=== PATIENT | female | born 1990 | race Caucasian/White ===

== ENCOUNTER 2016-10-22 23:41 | Emergency (ER) | payer BC ==
[~2016-10-22] VITALS: Ht 162.6 cm; Wt 54.0 kg
[2016-10-23] MEDS ORDERED: NO MEDICATIONS (00:01)
[2016-10-23 01:40] LABS: URINE SOURCE CLEAN CATCH
[2016-10-23 01:43] LABS: URINE APPEARANCE SL CLOUDY; URINE BILIRUBIN NEG (NEG); URINE BLOOD 2+ (NEG); URINE COLOR DK YELLOW; URINE GLUCOSE NEG (NORM); URINE KETONE NEG (NEG); URINE LEUKOCYTE ESTERASE 1+ (NEG); URINE NITRATE NEG (NEG); URINE PROTEIN 1+ (NEG); URINE SPECIFIC GRAVITY >=1.030 (1.003-1.035)
[2016-10-23 01:44] LABS: BASOPHIL% 0.3 % (0-2.5); EOSINOPHIL# 0.4 X10e3 (0-0.7); EOSINOPHIL% 5.8 % (0.0-7.0); HEMATOCRIT 39.2 % (35.0-45.0); HEMOGLOBIN 13.2 gm/dL (12.0-16.0); LYMPHOCYTE# 1.9 X10e3 (1.0-3.5); LYMPHOCYTE% 28.9 % (17.0-45.0); MEAN CELL VOLUME 86.5 FL (83-96); MEAN CORPUSCULAR HEMOGLOBIN 29.1 PG (28-34); MEAN CORPUSCULAR HGB CONC 33.6 g/dL (30-36); MEAN PLATELET VOLUME 9.3 FL (6.5-11.5); MONOCYTE# 0.5 X10e3 (0-1.0); MONOCYTE% 7.9 % (3.0-12.0); NEUTROPHIL# 3.7 X10e3 (1.5-7.1); NEUTROPHIL% 57.1 % (40-75); PLATELET COUNT 281 X10e3 (140-420); RED BLOOD COUNT 4.53 X10e (3.90-5.30); RED CELL DISTRIBUTION WIDTH 14.6 % (11.0-15.5); WHITE BLOOD COUNT 6.5 X10e3 (4.0-10.5)
[2016-10-23 01:46] LABS: MICRO INDICATED? YES
[2016-10-23 01:47] LABS: DIFF IND NO
[2016-10-23 01:50] LABS: CULTURE INDICATED? YES; URINE AMORPHOUS SEDIMENT AMORP URATES; URINE BACTERIA 2+ (NEG); URINE MUCUS PRESENT; URINE RBC 25-50 /[HPF] (0-2); URINE SQUAMOUS EPITHELIAL CELL MANY /[HPF]; URINE WBC 50-100 /[HPF] (0-5)
[2016-10-23 01:54] LABS: ALBUMIN SERUM 4.4 g/dL (3.5-5.0); ALKALINE PHOSPHATASE 46 U/L (32-92); ALT (SGPT) 29 U/L (10-40); AMYLASE 31 U/L (0-46); AST (SGOT) 25 U/L (10-42); BILIRUBIN, DIRECT <0.1 mg/dL (0.0-0.2); BILIRUBIN,INDIRECT 0.6 mg/dL (0.0-0.9); BILIRUBIN,TOTAL 0.7 mg/dL (0.2-2.0); BLOOD UREA NITROGEN 26 mg/dL (9-23); CALCIUM SERUM 9.5 mg/dL (8.4-10.2); CARBON DIOXIDE 27 mmol/L (22-31); CHLORIDE 104 mmol/L (100-111); CREATININE SERUM 0.8 mg/dL (0.6-1.4); GLOM FILT RATE Estimated 102.6 mL/min (>60); GLUCOSE FASTING 97 mg/dL (70-110); LIPASE 37 U/L (22-51); POTASSIUM 3.7 mmol/L (3.5-5.1); PROTEIN TOTAL SERUM 7.4 g/dL (6.0-8.3); SODIUM 140 mmol/L (135-145)
[2016-11-02] MEDS ORDERED: PROZAC PO (11:07)
[2016-11-02] MEDS ORDERED: ZOFRAN PO (12:28)
== END 2016-10-23 02:30 | disposition home or self-care (01) ==
LOC: SED 23:41
PROVIDERS: Nurse Practitioner Family
DX: N39.0 Urinary tract infection, site not specified (principal); F17.210 Nicotine dependence, cigarettes, uncomplicated
CPT/HCPCS: 36415; 80048; 80076; 81003; 82150; 83690; 84703; 85025; 87086; 96361; 96374; 99284; J2405

== ENCOUNTER → 2016-11-02 | Day surgery (SDC) | payer BC ==
[~2016-11-02] MED LIST: NO MEDICATIONS; PROZAC PO; ZOFRAN PO
--- NOTE | ~2016-11-02 | OR ---
Unit #: [id number] #: [id number] Patient: ZEYAD SALGADO [id number] [address] [address] [id number] O MR#: [id number] NAME: ZEYAD SALGADO ROOM: Date of Procedure: 11/02/2016 Admission Date: 11/02/2016 Surgeon: Wesly Ruiz M.D. : 1990 Attending Physician: Wesly Ruiz M.D. Primary Care Physician: John Calderon M.D. OPERATIVE REPORT PRIMARY CARE PHYSICIAN John Calderon M.D. PREOPERATIVE DIAGNOSES Nausea and vomiting, which is intermittent and dyspepsia. PROCEDURES PERFORMED Upper gastrointestinal endoscopy and biopsy. POSTOPERATIVE DIAGNOSES Completely normal examination up to third part of duodenum. A biopsy obtained from the antrum for CLOtest. RECOMMENDATIONS An outpatient gastric emptying study is being scheduled. The patient will be seen in the office in 3 to 4 weeks time thereafter. SEDATION USED MAC. DESCRIPTION OF PROCEDURE Following detailed explanations of potential risks and complications of an upper endoscopy, namely perforation, bleeding, and complications related to sedation, the patient was brought to GI lab and laid in the left lateral decubitus position. Lubricated tip of the Olympus video upper endoscope was passed through the bite block into the proximal esophagus under direct vision. The entire esophageal mucosa was examined and appeared normal. Z-line was nicely demarcated, there being no esophagitis or hiatus hernia. The scope was then advanced into the gastric cavity and the latter was insufflated. Mucosa of the fundus, body, and antrum examined and appeared unremarkable. Pylorus was intubated with visualization of the normal duodenal bulb and second and third part of the duodenum. Upon withdrawal and retroflexion, incisura, cardia, and greater curve examined and no additional findings noted. A biopsy obtained from the antrum for CLOtest. The scope was then withdrawn all the way up to pharynx. No additional findings noted. The patient tolerated the procedure without any postprocedure complications. Dictated by... Wesly Ruiz M.D. Unit #: [id number] #: [id number] Patient: ZEYAD SALGADO ANUEL/melanie TD: 11/02/2016 14:02 JOB #: [id number] CC: John Calderon M.D. OPERATIVE REPORT Page 1 of 1 X Wesly Ruiz MD PROCEDURE OPERATIVE NOTE
== END | disposition home or self-care (01) ==
LOC: COPS 10:09
DX: R10.13 Epigastric pain (principal); R11.2 Nausea with vomiting, unspecified; F41.9 Anxiety disorder, unspecified; F32.9 Major depressive disorder, single episode, unspecified; F17.210 Nicotine dependence, cigarettes, uncomplicated; K58.9 Irritable bowel syndrome, unspecified; Z98.818 Other dental procedure status; Z98.890 Other specified postprocedural states; Z79.899 Other long term (current) drug therapy
CPT/HCPCS: 84703; 87077; J2250

== ENCOUNTER → 2016-11-02 | Outpatient (CLI) | payer BC ==
--- NOTE | ~2016-11-02 | US5 ---
[facility] A Service of [facility] & [facility] RADIOLOGY TEXT RESULTS PATIENT: ZEYAD SALGADO LOCATION: [facility] : [birth year] UNIT #: [id number] AGE: [address]: MARLENA QUINONEZ APRN SEX: F ORDER DR: [id number] [facility] [address] [place], [place] [address] [id number] O MR#: [id number] Acc #: [id number] NAME: ZEYAD SALGADO : 1990 SEX: F STUDY DATE/TIME: 11/02/2016 9:32 UNIT: [facility] ROOM: STUDY DESCRIPTION: US Abdominal Complete Attending Physician: Marlena Quinonez Aprn Referring Physician: Marlena Quinonez Aprn Ordering Physician: Marlena Quinonez Aprn Primary Care Physician: John Calderon M.D. MEDICAL IMAGING REPORT This report is preliminary unless electronic signature is present EXAM Abdominal ultrasound complete, 11/02/2016 HISTORY Epigastric abdominal pain with nausea and vomiting after eating for 1 year. FINDINGS The liver is homogeneous in echotexture and demonstrates no cystic or solid mass lesions. The intra and extrahepatic bile ducts are not dilated. The gallbladder is normal with no evidence of cholelithiasis, wall thickening or pericholecystic fluid. The common duct measures 3.0 mm. The pancreas and spleen are normal. The spleen measures approximately 9.0 cm in greatest diameter. The visualized portions of the abdominal aorta and inferior vena cava are within normal limits. There is a 1.6 cm cyst on the right kidney. The left kidney is normal. IMPRESSION Right renal cyst. Otherwise negative abdominal ultrasound. Dictated by... Jose L Enamorado M.D. THIS IS AN ELECTRONICALLY VERIFIED REPORT Jose L Enamorado M.D. at 11/02/2016 5:55 PM Edita TD: 11/02/2016 13:27 JOB #: [id number] MEDICAL IMAGING REPORT Page 1 of 1 COPY
== END | disposition home or self-care (01) ==
LOC: CGUS 08:30
DX: R10.13 Epigastric pain (principal); R11.2 Nausea with vomiting, unspecified; N28.1 Cyst of kidney, acquired
CPT/HCPCS: 76700

== ENCOUNTER → 2016-11-23 | Outpatient (CLI) | payer BC ==
--- NOTE | ~2016-11-23 | NM19 ---
[facility] A Service of [facility] & [facility] RADIOLOGY TEXT RESULTS PATIENT: ZEYAD SALGADO LOCATION: [facility] : [birth year] UNIT #: [id number] AGE: [address]: Wesly Ruiz MD SEX: F ORDER DR: [id number] [facility] [address] [place], [place] [address] [id number] O MR#: [id number] Acc #: [id number] NAME: ZEYAD SALGADO : 1990 SEX: F STUDY DATE/TIME: 11/23/2016 7:25 UNIT: [facility] ROOM: STUDY DESCRIPTION: ID Gastric Emptying Study Attending Physician: Wesly Ruiz M.D. Referring Physician: Wesly Ruiz M.D. Ordering Physician: Wesly Ruiz M.D. Primary Care Physician: John Calderon M.D. MEDICAL IMAGING REPORT This report is preliminary unless electronic signature is present EXAM Gastric emptying scan 11/23/2016 HISTORY Nausea and vomiting intermittent diarrhea and constipation. Lower abdominal pain for 1 year. FINDINGS The patient ingested 575 mcCi of technetium 99m tagged sulfur colloid in eggs. Images of the upper abdomen were obtained for 4 hours. After 1 hour the stomach was 39% empty and after 2 hours the stomach was 67% empty and after 4 hours the stomach was 96% empty. Normal range is greater than 60% empty after 2 hours of imaging and greater than 90% empty after 4 hours of imaging. IMPRESSION Normal gastric emptying after 2 and 4 hours of imaging Dictated by... Jose L Enamorado M.D. THIS IS AN ELECTRONICALLY VERIFIED REPORT Jose L Enamorado M.D. at 11/26/2016 7:33 AM ASTON/vanessa TD: 11/24/2016 05:08 JOB #: [id number] MEDICAL IMAGING REPORT Page 1 of 1 COPY
== END | disposition home or self-care (01) ==
LOC: CNUC 06:38
DX: R11.2 Nausea with vomiting, unspecified (principal)
CPT/HCPCS: 78264; A9541